=== PATIENT | male | born 1975 | race Caucasian/White ===

== ENCOUNTER 2019-07-11 09:55 | Day surgery (SDC) | payer OTHER, BC ==
[~2019-07-11] VITALS: Ht 180.3 cm; Wt 110.2 kg
[~2019-07-11 09:55] MED LIST: CYCLOBENZAPRINE5 MG PO; IBUPROFEN800 MG PO; ULTRAM50 MG PO; ZOFRAN4 MG PO
--- NOTE | 2019-07-11 11:46 | NUR ---
DEANDRE OKEEFE IN ROOM FOR ANESTHESIA CONSULT. ORDERS RECEIVED FOR DUONEB TREATMENT AND VERSED. PT COMPLETES DUONEB TREATMENT WITH RESP THERAPIST. VERSED GIVEN PER ORDERS FROM CO CHAIRMAN. BED RAILS UP. FAMILY IN ROOM. CALL LIGHT WITHIN REACH
[2019-07-11] MEDS ORDERED: HYDROCODON-ACE1 EA11 PO (13:44)
--- NOTE | 2019-07-11 14:06 | NUR ---
07/11/19 1406 Tuyet Donaldson 1345 PT ARRIVED IN PACU NON RESPONSIVE TO NOXIOUS STIMULI ON RA WITH OPA IN PLACE. SATS 90%. ANESTHESIA PLACED PT ON O2 AT 6L VIA MASK WITH SATS INCREASING TO 99%. CHIN LIFT HELD BY RN. 1355 PT REACTIVE WITH OPA IN PLACE. ICE TO R KNEE AND ELEVATED.
--- NOTE | 2019-07-11 14:32 | NUR ---
PT RETURNS TO DS ROOM 4 FROM PACU. REPORT RECEIVED FROM [employer] OPERATIONS MANAGER. PT DENIES NAUSEA BUT REPORTS 5/10 PAIN IN RIGHT KNEE. PT PROVIDED WITH COFFEE, WATER, AND JELLO. PAIN MANAGEMENT DISCUSSED. PT AGREEBALE. FAMILY AT BEDSIDE. VSS. CALL LIGHT WIHTIN REACH
--- NOTE | 2019-07-11 14:52 | NUR ---
PT MEDICATED FOR PAIN SEE EMAR. PT GIVEN MORE COFFEE AND ASKS ABOUT DC. DC CRITERIA DISCUSSED AND PT AGREEABLE. CALL LIGHT WITHIN REACH
--- NOTE | 2019-07-11 15:20 | NUR ---
PT UP TO BATHROOM TO VOID. PT ONLY ABLE TO VOID A VERY SCANT AMOUNT. BLADDER SCANNED FOR 54 ML. CALL TO
--- NOTE | 2019-07-11 15:52 | NUR ---
WAITING FOR PHONE CALL BACK FROM . 2ND LITER OF FLUID STARTED. PT TOLERATING PO FLUIDS. COFFEE AND WATER CONTINUED. CALL LIGHT WITHIN REACH
--- NOTE | 2019-07-11 16:10 | NUR ---
TC TO . DISCUSSED PT UNABLE TO VOID BUT PT STATING HE WILL LEAVE AMA IF UNABLE TO DC HOME AT THIS TIME. ORDERS RECEIVED FOR TO DC HOME AND GO TO ER IF PROBLEMS VOIDING PERSIST. PT AGREEABLE.
--- NOTE | 2019-07-11 16:29 | NUR ---
DC INSTRUCTIONS WITH PRECAUTIONS PROVIDED. PT VERBALIZES UNDERSTANDING AND DENIES FURTHER QUESTIONS. PRESCRIPTION EDUCATION GIVEN. IV DC'D WNL. VSS. PT DENIES NAUSEA AND REPORTS TOLERABLE PAIN LEVEL 12/01. PT TRANSPORTED IN WHEELCHAIR TO VEHICLE DRIVEN BY
--- NOTE | 2019-07-12 07:39 | OR ---
[facility] [address], [place] [address] Signed DATE OF OPERATION: 07/11/2019 SURGEON: Jaiden Bustillo MD PREOPERATIVE DIAGNOSIS: Medial meniscus tear, right knee. POSTOPERATIVE DIAGNOSIS: Chondromalacia of right medial femoral condyle. PROCEDURE PERFORMED: Right knee arthroscopy with partial limited debridement of the medial femoral condyle. IT SERVICE DELIVERY MANAGER: Olya Pritchett PA-C. ANESTHESIA: General. BLOOD LOSS: Minimal. BRIEF HISTORY: Nita is a 44-year-old gentleman with pain and catching in his knee. MRI was consistent with the above. Risks and benefits of operative treatment discussed with him. He elected to proceed. DESCRIPTION OF PROCEDURE: Once consent was obtained, he was taken to the operating room after adequate anesthesia, was placed on operating room table. All downside pressure points well padded. The left leg was flexed, abducted, and externally rotated on a well-padded leg arambula. Right was placed in well-padded proximal thigh leg arambula with no tourniquet. The portal sites were pre-injected using 0.25% Marcaine with epinephrine under alcohol prep. Leg was then prepped and draped in a standard sterile fashion. Standard inferior lateral and superolateral portals were established and scope was introduced in the knee. ARTHROSCOPIC FINDINGS: Moderate synovitis was noted throughout the knee. There was grade 2 chondromalacia to the lateral patellar facet and grade 1 on the femur. Medial and lateral gutters were clear. ACL and PCL were intact. Lateral compartment was intact. Medial compartment Electronically Signed By: JAIDEN BUSTILLO MD 07/12/19 0739 PATIENT NAME: NITA GOOD OPERATIVE REPORT DATE OF : 73 REPORT #: [id number] PHYSICIAN: JAIDEN BUSTILLO MD PCP: NO PRIMARY CARE PHYSICIAN REPORT IS CONFIDENTIAL AND NOT TO BE RELEASED WITHOUT AUTHORIZATION [facility] [address], [place] [address] Signed showed an intact medial meniscus to both palpation and visualization. There were three large chondral flaps on the medial femoral condyle that were debrided. These were unstable and probably catching during weightbearing. Scope was then withdrawn. Portals were closed with 3-0 nylon and dressed with Adaptic, ABD, and Alan wrap. He tolerated the procedure well. All sponge, needle, and instrument counts were correct. Jaiden Bustillo MD BA/MODL /[id number] Copies: ~ Electronically Signed By: JAIDEN BUSTILLO MD 07/12/19 0739 PATIENT NAME: NITA GOOD OPERATIVE REPORT DATE OF : 73 REPORT #: [id number] PHYSICIAN: JAIDEN BUSTILLO MD PCP: NO PRIMARY CARE PHYSICIAN REPORT IS CONFIDENTIAL AND NOT TO BE RELEASED WITHOUT AUTHORIZATION
== END 2019-07-11 16:23 | disposition home or self-care (01) ==
LOC: OPS 09:55 → DS 09:55 → OPS 13:15 → DS 13:15 → OPS 14:30
PROVIDERS: Specialist
PROC: 0SBC4ZZ Excision of Right Knee Joint, Percutaneous Endoscopic Approach (ICD-10-PCS; principal; 2019-07-11 15:30)
DX: M94.261 Chondromalacia, right knee (principal); G47.30 Sleep apnea, unspecified; M65.9 Synovitis and tenosynovitis, unspecified; F17.210 Nicotine dependence, cigarettes, uncomplicated
CPT/HCPCS: 01400; 94640; A9270; J0690; J1100; J1885; J2250; J2405; J2704; J3010; J7121